=== PATIENT | male | born 1980 | race Caucasian/White ===

== ENCOUNTER 2020-07-05 14:37 | Emergency (ER) | payer MEDICARE, MEDICAID, SELFPAY ==
[2020-07-05 14:45] VITALS: BP 120/84; PULSE 97; RESP 12; TEMP 36.6; O2SAT 100
--- NOTE | 2020-07-05 15:24 | ED.SKABFB ---
HPI - Skin/Abscess/Foreign Bdy General Chief complaint: Skin/Abscess/Foreign Body Stated complaint: pos skin infection Time Seen by Provider: 07/05/20 14:54 Source: patient and RN notes reviewed Mode of arrival: ambulatory Limitations: no limitations History of Present Illness HPI narrative: Patient presents today complaining of an abscess to his right buttock. It was removed by a enterprise application analyst several months ago. He has returned a few times to the enterprise application analyst to have it drained subsequently. He is also likely drained it a few times at home as well. States the cyst/abscess has returned and is now draining for the past 2 months and is worsening. He has an appointment with the enterprise application analyst in 2 days 12 but wanted to come to urgent care to, get it taken care of today instead, as he does not want to return to this enterprise application analyst. He did spend the last 2 months driving around the country in his van. Currently rates his pain 4/10. He has tried no medication for pain prior to arrival. MD complaint: lesion Related Data Home Medications Medication Instructions Recorded Confirmed benztropine 07/05/20 buspirone mg 07/05/20 clonazepam 07/05/20 lithium carbonate 07/05/20 mirtazapine mg 07/05/20 quetiapine 07/05/20 Allergies Allergy/AdvReac Type Severity Reaction Status Date / Time No Known Allergies Allergy Unknown Unverified 06/01/09 10:50 Review of Systems Review of Systems: Narrative: CONSTITUTIONAL: Denies body aches, fever, chills, or sweats. EYES: Denies visual changes, redness, or discharge. ENT: Denies rhinorrhea, congestion, sore throat, or otalgia. CARDIOVASCULAR: Denies chest pain, palpitations, or edema. RESPIRATORY: Denies cough or dyspnea. GASTROINTESTINAL: Denies abdominal pain, nausea, vomiting, or diarrhea. GENITOURINARY: Denies dysuria or hematuria. SKIN: Denies rash, itching. + Draining wound to right buttock MUSCULOSKELETAL: Denies back pain, joint pain, or myalgia. NEUROLOGIC: Denies headache, numbness, tingling, or weakness. PSYCH: Denies depression or anxiety. PMFSH Comments At time of signature, I have reviewed and agree with nursing past medical, surgical, social and family history unless otherwise noted. Please see nursing chart for further information. There is no relevant family history pertinent to the presenting complaint Exam Narrative: Exam Narrative: GENERAL: Well-appearing, well-nourished, and in no acute distress. HEAD: Normocephalic, atraumatic. EYES: EOMI. No redness or drainage. Conjunctivae normal. ENT: Mucous membranes pink and moist. NECK: Normal AROM. CHEST: No respiratory distress. EXTREMITIES: Normal range of motion. No edema. SKIN: Warm, dry, no rash. Capillary refill normal. Normal skin turgor. 2x2cm scarred area to right gluteal cleft with 2mm area of scabbing in center where pt has attempted to jhoan the lesion. No erythema, edema, induration, or fluctuance noted. Nontender to palpation. No drainage from the incision area. NEURO: No focal deficits. Alert and oriented x3. Gait steady. PSYCH: Normal affect. No signs of depression or anxiety. Course Vital Signs Vital signs: Vital Signs Temperature 97.8 F 07/05/20 14:45 Pulse Rate 97 07/05/20 14:45 Respiratory Rate 12 07/05/20 14:45 Blood Pressure 120/84 07/05/20 14:45 Pulse Oximetry 100 07/05/20 14:45 Temperature 97.8 F 07/05/20 14:45 Pulse Rate 97 07/05/20 14:45 Respiratory Rate 12 07/05/20 14:45 Blood Pressure 120/84 07/05/20 14:45 Pulse Oximetry 100 07/05/20 14:45 Reviewed. Pt has been instructed to follow up with his PCP regarding his elevated blood pressure today. MDM - Skin/Abscess/Foreign Bdy Differential Diagnosis Differential diagnosis: Likely abscess of skin or subcutaneous tissue, cellulitis and other (Pilonidal abscess, pilonidal cyst) Critical Care Time Critical Care Time Critical Care Time: No Discharge Plan Discharge Clinical Impressi
== END 2020-07-05 15:34 | disposition home or self-care (01) ==
PROVIDERS: Emergency Provider Nurse Practitioner
DX: S31.819A Unspecified open wound of right buttock, initial encounter (principal); X58.XXXA Exposure to other specified factors, initial encounter
CPT/HCPCS: 99213; G0463

== ENCOUNTER 2020-12-28 10:27 | Emergency (ER) | payer MEDICARE, MEDICAID, SELFPAY ==
--- NOTE | ~2020-12-28 | XR_ITS ---
XR foot RT min 3V 12/28/2020 10:41 INDICATION: Repeated trauma to the right foot. PROCEDURE: 4 views right foot COMPARISON: No prior studies for comparison. FINDINGS: Fracture, dislocation or subluxation is not identified. Lisfranc joint intact. The soft tis sues appear within normal limits. No foreign bodies are identified. IMPRESSION: 1: NO ACUTE BONE OR JOINT ABNORMALITY IDENTIFIED. Reviewed, dictated and finalized at location A.
--- NOTE | 2020-12-28 10:32 | ED.LOWEXIN ---
HPI - Extremity Injury (Lower) General Chief Complaint: Extremity Injury, Lower Stated Complaint: R FOOT INJURY Time Seen by Provider: 12/28/20 10:40 Source: patient and RN notes reviewed Mode of arrival: ambulatory Limitations: no limitations History of Present Illness HPI Narrative: 40-year-old male presents to the [facility] with complaints of right foot pain at the distal aspects of the metatarsals 2,3,4 and 5. Reports that he injured his right foot approximately 3 months ago. States it was extremely bruised and swollen but it got better. States he stubbed his toe yesterday and the pain is worse than it was a couple months ago but there is no bruising or swelling. Able to move all 5 toes without issue. Sensation intact in all 5 toes. Capillary refill under 2 seconds Related Data Home Medications Medication Instructions Recorded Confirmed benztropine 07/05/20 buspirone mg 07/05/20 clonazepam 07/05/20 lithium carbonate 07/05/20 mirtazapine mg 07/05/20 quetiapine 07/05/20 Allergies Allergy/AdvReac Type Severity Reaction Status Date / Time No Known Allergies Allergy Unknown Unverified 06/01/09 10:50 Review of Systems Review of Systems: Narrative: CONSTITUTIONAL: Denies fever, chills, or sweats. CARDIOVASCULAR: Denies chest pain, palpitations, or edema. RESPIRATORY: Denies cough or dyspnea. SKIN: Denies rash or itching. MUSCULOSKELETAL: Denies back pain, joint pain, or myalgia. Rectal foot pain over metatarsals 2, 3, 4 and 5 NEUROLOGIC: Denies headache, numbness, or weakness. PSYCHIATRIC: Denies anxiety or depression. All other systems reviewed are negative, except as documented in HPI. PMFSH Comments At the time of my signature, I reviewed and agree with the nursing past medical, surgical, social, and family history. There is no relevant family history pertinent to the patient complaint. Exam Narrative: Exam Narrative: GENERAL: This is a well-nourished, well-developed patient, in no apparent distress. HEAD: normocephalic, atraumatic. EYES: PERRL. Sclera clear/white. Vision is grossly intact. EARS: External ears normal CARDIOVASCULAR: Regular rate and rhythm without murmurs, gallops, or rubs. RESPIRATORY: Clear to auscultation. Breath sounds equal bilaterally. No wheezes, rales, or rhonchi. SKIN: warm, intact with no suspicious lesions or rash, good texture and turgor. NEURO: awake, alert, and oriented to person, place and time. There were no obvious focal neurologic abnormalities. EXTREMITIES: No joint tenderness, effusion, or edema noted. Dorsal aspect right foot BACK: Nontender without deformity. Extrem: Ankle/foot/toe images: 1. tenderness with palpation without swelling bruising noted. Course Vital Signs Vital signs: Vital Signs Temperature 98 F 12/28/20 13:57 Pulse Rate 100 12/28/20 13:57 Respiratory Rate 16 12/28/20 13:57 Blood Pressure 136/76 12/28/20 13:57 Pulse Oximetry 100 12/28/20 13:57 Temperature 98 F 12/28/20 13:57 Pulse Rate 100 12/28/20 13:57 Respiratory Rate 16 12/28/20 13:57 Blood Pressure 136/76 12/28/20 13:57 Pulse Oximetry 100 12/28/20 13:57 reviewed MDM - Extremity Injury (Lower) MDM Narrative Medical decision making narrative: Discharge instructions reviewed with patient, as well as provided in writing per nursing staff. The instructions also include specific and strict return/GO TO THE ER as well as f/u information. All questions have been answered, and the patient deny any further questions with discharge and discharge plan. Differential Diagnosis Differential diagnosis: Likely ankle sprain and strain, fracture of toe, ankle fracture and other (foot contusion) Critical Care Time Critical Care Time Critical Care Time: No Discharge Plan Discharge Clinical Impression: Contusion of right foot Patient Disposition: Home, Self-Care Condition: Stable Instructions: Antibiotic Form, Contusion in Adults (ED)
[2020-12-28 13:57] VITALS: BP 136/76; PULSE 100; RESP 16; TEMP 36.6; O2SAT 100
== END 2020-12-28 11:03 | disposition home or self-care (01) ==
PROVIDERS: Emergency Provider Nurse Practitioner
DX: S90.31XA Contusion of right foot, initial encounter (principal); W22.8XXA Striking against or struck by other objects, initial encounter; F41.9 Anxiety disorder, unspecified; F31.9 Bipolar disorder, unspecified; F98.8 Other specified behavioral and emotional disorders with onset usually occurring in childhood and adolescence
CPT/HCPCS: 73630; 99213; G0463